=== PATIENT | male | born 1935 | race Caucasian/White ===

== ENCOUNTER 2020-06-09 07:18 | Outpatient (CLI) | payer MEDICARE, BC ==
[2020-06-09 08:02] LABS: Estimated GFR-MDRD - POC Greater than 90
== END 2020-06-09 07:19 | disposition home or self-care (01) ==
LOC: CSHNM 07:18
PROVIDERS: ATTEND Internal Medicine Hematology & Oncology
DX: C61 Malignant neoplasm of prostate (principal); C7A.1 Malignant poorly differentiated neuroendocrine tumors; C79.51 Secondary malignant neoplasm of bone; R59.0 Localized enlarged lymph nodes; N13.30 Unspecified hydronephrosis; N13.4 Hydroureter; J98.4 Other disorders of lung; K62.89 Other specified diseases of anus and rectum
CPT/HCPCS: 71260; 74177; 78306; 82565; A9503